=== PATIENT | female | born 1935 | race Two or more races ===

== ENCOUNTER → 2020-04-19 | Outpatient (CLI) | payer OTHER | END | disposition home or self-care (01) | LOC: RAD 12:18 | PROVIDERS: ATTEND Chiropractor Sports Physician | DX: M25.551 Pain in right hip (principal) ==

== ENCOUNTER 2022-10-22 12:46 | Outpatient (CLI) | payer OTHER | END 2022-10-22 12:57 | disposition home or self-care (01) | LOC: NUCLEAR 12:46 | PROVIDERS: ATTEND Internal Medicine | DX: M81.0 Age-related osteoporosis without current pathological fracture (principal) ==